=== PATIENT | female | born 1950 | race Caucasian/White ===

== ENCOUNTER → 2021-07-22 | Outpatient (CLI) | payer OTHER ==
[2016-10-30 09:55] VITALS: BP 120/64
[~2021-07-22] MED LIST: ACET-804 PO; CALC-31 PO; CYCL5TAB PO; IBUP200C9 PO; LEVO75TA90 PO; MAGN400T5 PO; MULT-18 PO; MULT-208 PO; NAPR220C4 PO; OMEG500C3 PO; OXYC1TAB7 PO; OXYC5TAB4 PO
--- NOTE | 2021-07-22 13:13 | KCIC ---
INDICATION: Screening for osteopenia/osteoporosis. Reason: OSTEOPENIA MULTIPLE SITES / Spl. Instruct ions: / History: COMPARISON: 04/08/2015 TECHNIQUE: Bone densitometry was performed through the lumbar spine and proximal femur. IMPRESSION: Lumbar Spine: BMD: 1.0 T-Score: -0.2 Range: Normal. Increased by 5 percent from prior. Proximal Femur: BMD: 0.68 T-Score: -2.2 Range: Near the border of osteopenia and osteoporosis. Decreased by 10 percent from prior. World Health Organization Criteria for Bone Density: T-Score: > -1.0: Normal Range < -1.0 to -2.5: Osteopenic Range < -2.5: Osteoporotic Range Electronically signed by: Michael Osorio MD (07/22/2021 1:11 PM) [id number]
--- NOTE | 2021-07-22 15:14 | KCIC ---
Bilateral digital screening mammograms with 3-D tomosynthesis: Reason for examination: Routine screening. Comparison is made to previous study dated 03/06/2016. Bilateral mammograms in CC and oblique projections were obtained with 2-D imaging and 3-D tomosynthes is imaging on a Siemens Inspiration unit and reviewed on the workstation. Interpretation was made adalberto barber the benefit of CAD. The skin and nipples show no abnormalities. No abnormal axillary lymph nodes are seen. The breast par enchyma is heterogeneously dense. (Breast density: Category C.) There continues these nodules in the subareolar positions, especially on the right which is stable. There are no new dominant masses, susp icious calcifications or architectural distortion. Benign calcifications are present. Impression: No evidence of malignancy. Recommend routine screening. Your patient's mammogram demonstrates that she has dense breast tissue (breast density category C or D), which could hide abnormalities, and if she has other risk factors for breast cancer that have bee n identified, she might benefit from supplemental screening tests that may be suggested by you as her ordering physician. Dense breast tissue, in and of itself, is a relatively common condition. Therefo re, this information is not provided to cause undue concern, but rather to raise your awareness and t o promote discussion with your patient regarding the presence of other risk factors, in addition to d ense breast tissue. Your patient's mammography results will be sent to her. BI-RAD Category 2: Benign. "Our facility is accredited by the [employer] Mammography Program." This patient's information has been entered into a reminder system for the patient to be notified wit h the results of her examination and a target date for the next mammogram. Electronically signed by: Pam Simpson MD (07/22/2021 3:12 PM) [id number]
== END ==
LOC: KCIC MAMMO 09:05
PROVIDERS: ATTEND Family Medicine
DX: Z12.31 Encounter for screening mammogram for malignant neoplasm of breast (principal); M85.89 Other specified disorders of bone density and structure, multiple sites; M81.0 Age-related osteoporosis without current pathological fracture
CPT/HCPCS: 77063; 77067; 77080

== ENCOUNTER → 2021-11-20 | Outpatient (CLI) | payer MEDICARE ==
[2016-10-30 09:55] VITALS: BP 120/64
[~2021-11-20] MED LIST changes: +MAGN400T48 PO; -MAGN400T5 PO
--- NOTE | 2021-11-20 11:39 | KCIC ---
EXAM: Cervical spine, 3 views; thoracic spine, 3 views; lumbar spine, 3 views; right wrist, 3 views. HISTORY: Pain. Fall. COMPARISON: None. FINDINGS: Cervical spine: 3 views of the cervical spine are obtained. There is instrumented anterior spinal fus ion and interbody fusion at C5-C6. There is minimal degenerative anterolisthesis of C3 on C4. There i s severe degenerative endplate remodeling with disc space narrowing at C6-C7. There is multilevel fac et arthropathy. There is bone demineralization. There is no acute osseous finding. Thoracic spine: 3 views of the thoracic spine are obtained. There is mild S-shaped thoracic scoliosis . There is a chronic mild left lateral wedge compression deformity of T6 and a chronic mild right lat eral wedge compression deformity of T8. There is multilevel endplate remodeling. There is bone demine ralization. Lumbar spine: 3 views of the lumbar spine are obtained. There is a transitional thoracolumbar segment . Based on the presence of 12 rib-bearing thoracic segments, this is considered L1. There are hypopla stic L1 ribs or elongated congenitally nonfused L1 transverse processes. There is grade 1 anterolisth esis of L5 on L6, and to a lesser extent, L4 on L5. There is multilevel endplate remodeling and facet arthropathy, primarily at L5-S1. There is bone demineralization. There is an incidental calcified ut erine fibroid. Right wrist: 3 views of the right wrist are obtained. There is triscaphe and first carpometacarpal jessica int space narrowing and subchondral sclerosis. There is ulnar negative variance. There is lucency tra versing the triquetrum and a single projection, possibly due to a nondisplaced fracture. There is bon e demineralization. IMPRESSION: 1. Lucency traversing the right triquetrum, possibly due to a nondisplaced fracture. Correlate for po int tenderness in this location along the dorsal aspect of the wrist. 2. Multilevel degenerative change involving the cervical, thoracic and lumbar spine, described in det ail above. 3. Instrumented fusion at C5-C6. 4. Transitional thoracolumbar segment, a normal variant described above. 5. Mild right wrist osteoarthritis. 6. Bone demineralization. Electronically signed by: Noreen Raymundo MD (11/20/2021 11:37 AM) [id number]
== END ==
LOC: KCIC 10:38
PROVIDERS: ATTEND Family Medicine
DX: M47.816 Spondylosis without myelopathy or radiculopathy, lumbar region (principal); M47.812 Spondylosis without myelopathy or radiculopathy, cervical region; M47.814 Spondylosis without myelopathy or radiculopathy, thoracic region; M85.89 Other specified disorders of bone density and structure, multiple sites; M19.031 Primary osteoarthritis, right wrist; M50.323 Other cervical disc degeneration at C6-C7 level; M41.84 Other forms of scoliosis, thoracic region; M43.8X4 Other specified deforming dorsopathies, thoracic region; M43.16 Spondylolisthesis, lumbar region; M48.8X7 Other specified spondylopathies, lumbosacral region
CPT/HCPCS: 72040; 72072; 72100; 73110